=== PATIENT | female | born 1940 ===

== ENCOUNTER 2021-07-08 18:15 | Inpatient (IN) | payer MEDICARE, MEDICAID ==
[~2021-07-08] VITALS: Ht 170.2 cm; Wt 82.3 kg
[2021-07-08 20:00] VITALS: BP 147/89; PULSE 73; TEMP 97.9
[2021-07-08] MEDS ORDERED: ASPIRIN 32325 MG/TAB PO (20:05)
[2021-07-08] MEDS ORDERED: VENTOLIN0.09 MG IH (20:07)
[2021-07-08] MEDS ORDERED: COMPLETE MULTI1 TAB PO (20:09)
[2021-07-08] MEDS ORDERED: OMEGA-31 SGL PO (20:09)
[2021-07-08] MEDS ORDERED: VITAMIN C500 MG PO (20:10)
--- NOTE | 2021-07-08 23:25 | NUR ---
PT IS ALERT AND ORIENTATED, PLEASANT. PT STATES SHE DID NOT SLEEP WELL AT OTHER HOSPITAL AND WANTED TO GET SOME SLEEP. ASSESSMENT COMPLETED. CALL LIGHT IN PLACE, THIS RN EDUCATED PT ABOUT WHAT TO EXPECT IN THE NEXT FEW DAYS. PT VERBALIZED UNDERSTANDING. THIS RN GAVE UPDATE TO GRANDDAUGHTER AND SON. SON, ANNE, STATES HE HAS POA, , AND HAD MULTIPLE QUESTIONS ABOUT TREATMENT AND HER DIAGNOSIS. NO OTHER NEEDS AT THIS TIME.
[2021-07-09 00:40] VITALS: BP 146/67; PULSE 73; TEMP 97.7
[2021-07-09 04:41] VITALS: BP 143/55; PULSE 68; TEMP 97.6
[2021-07-09 04:43] LABS: ARTERIAL BLD GAS O2 SATURATION 93.1 % (92-100); ARTERIAL BLD GAS TCO2 CT 27.8; ARTERIAL BLOOD GAS BASE EXCESS 4.3 (-2-2); ARTERIAL BLOOD GAS HCO3 26.7 meq/L (22-26); ARTERIAL BLOOD GAS PCO2 33.2 mmHg (35-45); ARTERIAL BLOOD GAS PO2 61.8 mmHg (80-100); ARTERIAL BLOOD GAS pH 7.52 (7.35-7.45)
--- NOTE | 2021-07-09 06:25 | NUR ---
PT HAD AN UNEVENTFUL NIGHT. PT ON 10L HIGH FLOW. CALL LIGHT IN REACH, ALL NEEDS MET. PT SON, ANNE, STATES HE HAS POWER OF BUSINESS DEVELOPMENT ASSOCIATE -NOT VERIFIED WITH PATIENT OR PAPERWORK- CELL PHONE IS [phone]. PT SON WOULD LIKE ROUTINE UPDATES AND MAY HAVE FURTHER QUESTIONS. PT ALSO HAD QUESTIONS ABOUT MEDICATIONS.
[2021-07-09 08:05] LABS: BASO % 0.2 % (0.0-2.0); GRAN % 85.2 % (42.2-75.2); HEMATOCRIT 38.1 % (37.0-47.0); HEMOGLOBIN 12.8 g/dl (12.5-16.0); LYMPH # 0.9 K/mm3 (1.2-3.4); MEAN CELL VOLUME 89 fl (80.0-100.0); MEAN CORPUSCULAR HEMOGLOBIN 30 pg (27-31); MEAN CORPUSCULAR HGB CONC 34 g/dl (33.0-37.0); MEAN PLATELET VOLUME 10.7 fl (7.4-10.4); MONO # 0.6 K/mm3 (0.1-0.6); MONO % 5.4 % (1.7-9.3); PLATELET COUNT 282 K/mm3 (130-400); REDCELL DISTRIBUTION WIDTH-CV 13.4 % (11.5-14.5)
[2021-07-09 08:19] VITALS: BP 137/57; PULSE 65; TEMP 97.5
[2021-07-09 08:21] LABS: CALCIUM 8.1 mg/dL (8.4-10.2); CREATININE, serum 0.64 mg/dL (0.57-1.11); MAGNESIUM 2.3 mg/dL (1.6-2.6); POTASSIUM 3.5 mmol/L (3.5-4.5)
--- NOTE | 2021-07-09 08:30 | NUR ---
toan, pt son updated on pt's night. After this RT called notifying that pt now on airvo and that pt was hallucinating things on her ceiling . pt pleasant, aox4, sob at rest w/ airvo, medications given, anx infusing, educated on all meds given, assessment performed, pt denies bm "since before , i just haven't been eating anything since then". physician notified. pt has productive cough. pt utilizing bedside commode with assistance, pt seems unable to make a decision on code status, repeatedly states "i dont want the ventilator, ill just anyways" but then when asked if she would agree to be a do not intubate she states "well i just don't know ill probably anyways".
[2021-07-09 10:16] LABS: ALBUMIN 2.3 gm/dL (3.4-4.8); BILIRUBIN,DIRECT 0.3 mg/dL (0.0-0.5); BILIRUBIN,TOTAL 0.5 mg/dL (0.2-1.2); TOTAL PROTEIN 5.2 gm/dL (6.2-8.1)
[2021-07-09 10:18] LABS: C-REACTIVE PROTEIN 7.1 mg/dL (0.00-0.50)
--- NOTE | 2021-07-09 10:27 | NUR ---
attempted to call consult to ID, no answer at this time.
[2021-07-09 11:30] VITALS: BP 122/44; PULSE 66; TEMP 97.7
--- NOTE | 2021-07-09 11:42 | NUR ---
Supervisor Fruit Grading contacted patient by room phone as she is on isolation for COVID 19. Patient is currently on 40 liters of oxygen. Patient lives alone in [place] and advised that she goes to [facility] in [place] for primary care. Patient stated she was seeing Dr. Mercer who is no longer there, so she is not sure what physician she will be assigned to. Patient obtains medications from [facility] with no difficulties and uses a cane for ambulation. Patient uses no other DME and reports she is normally independent with ADLS. Patient states she printed out paperwork for DPOA-HC, however did not complete it. SW discussed completing DPOA-HC here and patient would like to do this. Patient states she understands this would give her children the ability to make medical decisions for her if she can't. Patient chose to designate her son, Miguel (ph#[phone]) and daughter, Alyse (ph#[phone]). Patient states she is hopeful that Miguel and Alyse will involve her two other children, Noah and Bud if decisions need to be made. Patient understands that she is designating Miguel and Alyse as the official descision makers. DAXA collaborated with nursing staff to obtain patient's signature as she is in isolation. DAXA and SOCRATES Tavarez provided witness signature and placed copy of form in patient's chart. DAXA contacted patient's son, Miguel who confirmed the above information. Miguel advised that he lives in [place] and his sister Alyse lives in [place]. Noah lives in [place] and Bud lives in [place]. Miguel advised patient is not and has a sister that he thinks lives in [place]. Miguel states he is not sure if patient will survive this illness and that it's in the Lord's hands at this point. Miguel advised he talked with patient on the phone and she didn't sound great. Discharge Plan: Patient currently on high flow oxygen, DAXA will continue to monitor for discharge needs.
[2021-07-09 16:59] VITALS: BP 121/45; BP 78/40; PULSE 75; TEMP 98.1
--- NOTE | 2021-07-09 17:48 | NUR ---
PT PLEASANT,AOX4,TALKATIVE, SOB AT REST, PT DENIES N/V/D, STABLE ON AIRVO
[2021-07-09 20:27] VITALS: BP 155/59; PULSE 86; TEMP 98.5
--- NOTE | 2021-07-09 23:07 | NUR ---
PT IS LAYING IN BED. ALERT. DENIES ALL PAIN. PT STATES SOME ANXIETY ABOUT PLAN OF CARE. PT STATES SHE WANTS HER LIVER TO BE HEALTHY AND NOT ABUSED, AND STATED SOME CONCERNS ABOUT INTUBATION. I ASKED PATIENT TO CLARIFY ABOUT IF SHE WANTED TO INTUBATED IF IT CAME TO THAT, SHE DID NOT ANSWER COMPLETELY, BUT SHE WANTED TO GET SOME SLEEP. PT EDUCATED ABOUT MEDICATIONS, PT VERBALIZED UNDERSTANDING. ALL NEEDS MET.
[2021-07-10 00:33] VITALS: BP 156/54; PULSE 72; TEMP 98.8
[2021-07-10 05:06] VITALS: BP 144/49; PULSE 67; TEMP 98.4
[2021-07-10 05:42] LABS: BASO % 0.1 % (0.0-2.0); GRAN # 8.3 K/mm3 (1.4-6.5); GRAN % 85.4 % (42.2-75.2); HEMATOCRIT 37.7 % (37.0-47.0); HEMOGLOBIN 12.6 g/dl (12.5-16.0); LYMPH # 0.7 K/mm3 (1.2-3.4); LYMPH % 6.8 % (20.0-51.0); MEAN CELL VOLUME 90 fl (80.0-100.0); MEAN CORPUSCULAR HEMOGLOBIN 30 pg (27-31); MEAN CORPUSCULAR HGB CONC 33 g/dl (33.0-37.0); MEAN PLATELET VOLUME 10.5 fl (7.4-10.4); MONO # 0.6 K/mm3 (0.1-0.6); MONO % 6.3 % (1.7-9.3); PLATELET COUNT 284 K/mm3 (130-400); RED BLOOD COUNT 4.18 M/mm3 (4.10-5.30); REDCELL DISTRIBUTION WIDTH-CV 13.4 % (11.5-14.5)
--- NOTE | 2021-07-10 05:44 | NUR ---
PT HAD AN UNEVENTFUL NIGHT, PT CURRENTLY ON 55L 61% ON AIRVO. PT SLEPT MOST OF NIGHT, PT DENIES PAIN, ALL NEEDS MET. CALL LIGHT IN REACH.
[2021-07-10 05:58] LABS: ALBUMIN 2.4 gm/dL (3.4-4.8); BILIRUBIN,TOTAL 0.4 mg/dL (0.2-1.2); C-REACTIVE PROTEIN 4.44 mg/dL (0.00-0.50); CALCIUM 8.3 mg/dL (8.4-10.2); CREATININE, serum 0.72 mg/dL (0.57-1.11); POTASSIUM 3.6 mmol/L (3.5-4.5); TOTAL PROTEIN 5.5 gm/dL (6.2-8.1)
[2021-07-10 07:02] LABS: PH 6 (5-8); SQUAMOUS EPITHELIAL 0-2 /hpf (0-10); URINE APPEARANCE Clear (CLEAR/HAZY); URINE BACTERIA None Seen /hpf (NONE SEEN); URINE BILIRUBIN Negative (NEGATIVE); URINE BLOOD Negative (NEGATIVE); URINE COLOR Yellow (YELLOW); URINE GLUCOSE 3+ (NEGATIVE); URINE KETONE Negative (NEGATIVE); URINE LEUKOCYTE ESTERASE Negative (NEGATIVE); URINE NITRATE Negative (NEGATIVE); URINE PROTEIN(semi-quant) Negative (NEGATIVE); URINE RBC 0-2 /hpf (0-2); URINE UROBILINOGEN Negative (NEGATIVE)
[2021-07-10 07:35] LABS: COLLECTION METHOD CLEAN CATCH
[2021-07-10 08:49] VITALS: BP 155/73; PULSE 73; TEMP 97.5
--- NOTE | 2021-07-10 09:04 | NUR ---
PT PLEASANT, AOX4, VERY TALKATIVE, ON AIRVO 55L, BREAKFAST BROUGHT IN TO PT, PT REPORTS HAVING TROUBLE SWALLOWING BREAD, PT APPEARS SOB AT REST, ASSESSMENT PERFORMED, MEDICATIONS GIVEN, VITALS REVIEWED, NO OTHER NEEDS
[2021-07-10 11:41] VITALS: BP 154/56; PULSE 65
[2021-07-10 17:00] VITALS: BP 149/65; PULSE 69; TEMP 98.5
--- NOTE | 2021-07-10 17:14 | NUR ---
PT EARLIER HAD C/O HEADACHE, TYLENOL GIVEN NOW PT DENIES PAIN, AOX4, PLEASANT, UNEVENTFUL SHIFT, VITALS STABLE, LITTLE APPETITE, NO OTHER NEEDS
[2021-07-10 20:52] VITALS: BP 156/63; PULSE 80; TEMP 97.6
--- NOTE | 2021-07-10 23:42 | NUR ---
Patient assessed around 2044. Alert and oriented x 4, and able to make needs known. Denies having pain and discomfort. PICC to RUE. Peripheral INT to left forearm. On Airvo 60L 80%. Does complain of shortness of breath, mainly after exertion. Used bedside commode to help decrease exertion. LS CTA in upper lobes, diminished in lower. Given PRN Melatonin for insomnia as requested. Voices no further questions, needs, or concerns at this time. In bed with call light radha woodruff.
[2021-07-11 00:46] VITALS: BP 150/55; PULSE 65; TEMP 97.7
[2021-07-11 04:49] VITALS: BP 131/85; PULSE 68; TEMP 97.7
--- NOTE | 2021-07-11 05:26 | NUR ---
Continues on Airvo at 60L 80%. Voices no questions, needs, or concerns at this time. In bed with call light within reach.
[2021-07-11 06:45] LABS: HEMATOCRIT 41.5 % (37.0-47.0); HEMOGLOBIN 13.9 g/dl (12.5-16.0); MEAN CELL VOLUME 89 fl (80.0-100.0); MEAN CORPUSCULAR HEMOGLOBIN 30 pg (27-31); MEAN CORPUSCULAR HGB CONC 34 g/dl (33.0-37.0); MEAN PLATELET VOLUME 10.8 fl (7.4-10.4); PLATELET COUNT 348 K/mm3 (130-400); RED BLOOD COUNT 4.64 M/mm3 (4.10-5.30); REDCELL DISTRIBUTION WIDTH-CV 13.2 % (11.5-14.5)
[2021-07-11 07:15] LABS: C-REACTIVE PROTEIN 3.82 mg/dL (0.00-0.50); CALCIUM 8.6 mg/dL (8.4-10.2); CREATININE, serum 0.67 mg/dL (0.57-1.11); POTASSIUM 3.6 mmol/L (3.5-4.5)
[2021-07-11 08:25] LABS: BAND 7 % (0-10); LYMPHOCYTE 5 % (20.0-51.0); METAMYELOCYTE 1 % (0-0); NEUTROPHILS 83 % (42.0-75.2)
[2021-07-11 08:26] LABS: PLATELET ESTIMATE NORMAL (NORMAL)
[2021-07-11 08:37] VITALS: BP 133/68; PULSE 70; TEMP 97.6
--- NOTE | 2021-07-11 08:50 | NUR ---
PT PLEASANT, AOX4, TALKATIVE, DENIES PAIN, ASSESSMENT PERFORMED, VITALS TAKEN AND REVIEWED, MEDICATIONS GIVEN, NO OTHER NEEDS, PT ATE 100% BREAKFAST
[2021-07-11 12:08] VITALS: BP 144/76; PULSE 72; TEMP 98.6
--- NOTE | 2021-07-11 12:25 | NUR ---
CALLED NÉSTOR BAKER FOR MEDICATION FOR CONSTIPATION
--- NOTE | 2021-07-11 13:27 | NUR ---
The patient's oxygen needs increased to 60 liters on airvo. The patient's RN notified DAXA that the patient's daughter, Alyse, had some questions for DAXA. DAXA contacted Alyse. Alyse inquired about the DPOA-HC. DAXA informed Alyse how the patient completed a DPOA-HC on Wednesday and designated her and her brother, Miguel. DAXA also reviewed discharge options of [facility] or rehab, if they are needed. Alyse verbalized understanding. Alyse is hopeful the patient can go home upon discharge. She had no other questions for SW at this time. SW to continue to follow.
[2021-07-11 16:25] VITALS: BP 155/74; PULSE 69; TEMP 98
--- NOTE | 2021-07-11 18:24 | NUR ---
PT PLEASANT, AOX4, INSULIN GIVEN WITH DINNER, AIRVO ON, UNEVENTFUL SHIFT OVERALL
[2021-07-11 20:45] VITALS: BP 125/89; PULSE 73; TEMP 98
--- NOTE | 2021-07-11 23:21 | NUR ---
Patient assessed around 2039. Alert and oriented x 4, and able to make needs known. Denies pain and discomfort. Given PRN Melatonin to help with sleep as requested. Patient has been ambulating to bathroom tonight, reports decreased dyspnea with exertion today compared to yesterday. Continues on Airvo at 60L 75%. Voices no further questions, needs, or concerns at this time. In bed with call light within reach.
[2021-07-12 00:39] VITALS: BP 133/48; PULSE 68; TEMP 98.5
--- NOTE | 2021-07-12 04:35 | NUR ---
Continues on Airvo at 60L 90%. Voices no questions, needs, or concerns at this time. In bed with call light within reach.
[2021-07-12 05:13] VITALS: BP 128/87; PULSE 69; TEMP 98.4
[2021-07-12 05:50] LABS: HEMATOCRIT 37.4 % (37.0-47.0); MEAN CELL VOLUME 88 fl (80.0-100.0); MEAN CORPUSCULAR HEMOGLOBIN 31 pg (27-31); MEAN CORPUSCULAR HGB CONC 35 g/dl (33.0-37.0); MEAN PLATELET VOLUME 10.4 fl (7.4-10.4); PLATELET COUNT 285 K/mm3 (130-400); RED BLOOD COUNT 4.26 M/mm3 (4.10-5.30); REDCELL DISTRIBUTION WIDTH-CV 13.1 % (11.5-14.5)
[2021-07-12 06:08] LABS: C-REACTIVE PROTEIN 5.74 mg/dL (0.00-0.50); CALCIUM 8.4 mg/dL (8.4-10.2); CREATININE, serum 0.6 mg/dL (0.57-1.11); POTASSIUM 3.6 mmol/L (3.5-4.5)
[2021-07-12 06:44] LABS: BAND 8 % (0-10); EOSINOPHIL 2 % (0-4); LYMPHOCYTE 10 % (20.0-51.0); METAMYELOCYTE 2 % (0-0); NEUTROPHILS 73 % (42.0-75.2)
[2021-07-12 06:45] LABS: ANISOCYTOSIS 2+
[2021-07-12 08:46] VITALS: BP 129/65; PULSE 70; TEMP 97.9
[2021-07-12 12:21] VITALS: BP 143/52; PULSE 71; TEMP 98.3
[2021-07-12 16:59] VITALS: BP 134/51; PULSE 67; TEMP 98.3
[2021-07-12 20:53] VITALS: BP 104/69; PULSE 69; TEMP 98.2
--- NOTE | 2021-07-12 23:28 | NUR ---
Patient had been on Airvo at 60L 90%. RT changed over to Bipap at HS. Given PRN Melatonin for insomnia as requested. Voices no furhter questions, needs, or concerns at this time. In bed with call light within reach.
[2021-07-13 01:17] VITALS: BP 137/62; PULSE 57; TEMP 97.4
[2021-07-13 04:37] VITALS: BP 141/61; PULSE 57; TEMP 97.5
--- NOTE | 2021-07-13 06:05 | NUR ---
Patient became anxious with BIPAP during the night. Called SAMUEL Hutton, and received one time order for Ativan. Patient reports medication helped a lot with her anxiety and being able to rest and tolerate BIPAP. Has voiced no further questions, needs, or concerns. In bed with call light within reach.
[2021-07-13 08:08] LABS: HEMATOCRIT 38.5 % (37.0-47.0); HEMOGLOBIN 12.9 g/dl (12.5-16.0); MEAN CELL VOLUME 90 fl (80.0-100.0); MEAN CORPUSCULAR HEMOGLOBIN 30 pg (27-31); MEAN CORPUSCULAR HGB CONC 34 g/dl (33.0-37.0); MEAN PLATELET VOLUME 10.8 fl (7.4-10.4); PLATELET COUNT 297 K/mm3 (130-400); REDCELL DISTRIBUTION WIDTH-CV 13.2 % (11.5-14.5)
[2021-07-13 08:35] LABS: CALCIUM 8.6 mg/dL (8.4-10.2); CREATININE, serum 0.59 mg/dL (0.57-1.11)
[2021-07-13 08:54] VITALS: BP 132/62; PULSE 71; TEMP 97.7
--- NOTE | 2021-07-13 10:12 | NUR ---
Patient very tearful this morning, crying over the blankets we have as "they are the ones that [employer] [employer] babies are wrapped in before the ". Patient ambulated to the bathroom and did well. All morning medications administered.
[2021-07-13 11:32] LABS: LYMPHOCYTE 4 % (20.0-51.0); NEUTROPHILS 94 % (42.0-75.2)
[2021-07-13 11:33] LABS: PLATELET ESTIMATE NORMAL (NORMAL)
[2021-07-13 11:43] VITALS: BP 103/61; PULSE 74; TEMP 98.1
[2021-07-13 16:06] VITALS: BP 131/56; PULSE 70; TEMP 98
--- NOTE | 2021-07-13 18:05 | NUR ---
Patient has been resting all day, and continues to be tearful. Stating she is "going to be here for a year". Reassurance provided.
[2021-07-13 19:27] VITALS: BP 120/54; PULSE 74
[2021-07-14 00:20] VITALS: BP 136/53; PULSE 65; TEMP 97.5
--- NOTE | 2021-07-14 03:17 | NUR ---
ASSESSMENT COMPLETE FOR THIS SHIFT. PT SITTING ON THE SIDE OF THE BED. SOON I WALKED IN PT SAID, "HERE, MY BRA IS DIRTY, PUT IT AWAY...AND GO GET ME A NEW GOWN, THIS ONES DIRTY!" AFTER PUTTING THE PT'S BRA AWAY, GETTING HER A NEW HOSPITAL GOWN AND ASSISTING HER TO THE RESTROOM AND BACK TO BED, PT STATED SHE WAS MISSING HER K-STATE SHIRT AND HER HOUSE SHOES FROM HER MOVE OUT OF RM308 TO [place]302. I COULD NOT FIND ANY OF HER ITEMS IN [place]308. WILL PASS IT ON TO DAYSHIFT, TO SEE IF HOUSEKEEPING FOUND ANYTHING IN RM308 DURING CLEANING. PT DENIED PAIN, PALPITATIONS, SOB OR DIZZINESS. AFTER GIVING PT HER REQUESTED MELATONIN TO HELP HER SLEEP, PT STATED SHE HAD NO OTHER NEEDS AT THIS TIME. CALL LIGHT WITHIN REACH.
[2021-07-14 03:48] VITALS: BP 141/67; PULSE 63; TEMP 98
[2021-07-14 08:28] VITALS: BP 139/69; PULSE 72; TEMP 97.6
--- NOTE | 2021-07-14 09:07 | NUR ---
All morning medications administered as ordered. Patient assisted to the bathroom by this RN, using a walker. Gait is steady. Patient's voice is very monotoned and she asked, "Do I sound depressed? I've never had depression before. What are they going to do to fix this?" This RN gave the patient ideas to help boost her mood, and is keeping the curtains open to allow sunlight.
--- NOTE | 2021-07-14 10:33 | NUR ---
The hospitalist notified DAXA that he would like a referral to [facility] for the patient. DAXA contacted and faxed a referral to Alcides at [facility]. Awaiting screen.
[2021-07-14 12:19] VITALS: BP 136/47; PULSE 80; TEMP 98
--- NOTE | 2021-07-14 14:45 | NUR ---
Alcides, at [facility], reports that the patient has [employer] and they deny everything. He reports that the patient's oxygen needs are not where he can make a case for insurance yet, where they would consider it. Alcides plans to follow the patient.
[2021-07-14 15:50] VITALS: BP 120/56; PULSE 74; TEMP 97.4
[2021-07-14 19:58] VITALS: BP 121/55; PULSE 76; TEMP 97.9
[2021-07-15] VITALS (7 sets, daily range): BP systolic 103–140; BP diastolic 49–67; PULSE 60–79; TEMP 97.4–98.2
--- NOTE | 2021-07-15 08:13 | NUR ---
ASSESSMENT COMPLETE FOR THIS SHIFT. PT COOPERATIVE WITH CARES. PT RESTING IN BED, RUBBING HER PRAY BLANKET(JUST A HOSPITAL BLANKET). PT VERY TALKATIVE. PT DENIES PAIN, PALPITATIONS, SOB OR DIZZINESS TONIGHT. PT WAS WILLING TO TRY THE BIPAP TONIGHT, WITH THE HELP OF SOME ATIVAN. PT DID WELL WITH THE BIPAP TONIGHT. PT STATES SHE HAS NO OTHER NEEDS AT THIS TIME. CALL LIGHT WITHIN REACH.
--- NOTE | 2021-07-15 10:00 | NUR ---
Assumed pt. All lines,tubes, GTTs , AIRVO,BIPAP, checked and verified. PT is alert but depressed. PT currently wearing the BIPAP. BIPAP removed and AIRVO applied. PT states that she worries about her dog and that she will lose her apartment. PT was reassured and positive feedback given. PT ambulated with assistance of a walker to the bathroom. PTs sats fell into the low 80s during ambulation to the bathroom but did not appear as though she was having diffuclty breathing and did not state she felt she was having problems. Will continue to monitor PT oxygen demand and mental health state.
--- NOTE | 2021-07-15 14:56 | NUR ---
DAXA contacted the patient's daughter, Alyse, to update on the clinical team's recommendation for [facility] and of the barriers with the patient's insurance. Alyse verbalized understanding and is in agreement to the plan. Alyse is hopeful for a call from the RN with an update. DAXA notified the patient's RN. DAXA faxed updates to Alcides at [facility].
--- NOTE | 2021-07-15 16:45 | NUR ---
PT BLOOD SUGAR HAS BEEN INCREASING THROUGHOUT THE DAY. BGL IS 387
--- NOTE | 2021-07-15 22:00 | NUR ---
Patient is resting in bed, alert and oriented x 4, VSS, denies pain, nausea or vimiting. SOB with exer. Airvo 60L 76%. Assisted to use the comode. Assessment completed, medications provided. No further needs at this time. Call light within reach.
--- NOTE | 2021-07-16 00:28 | NUR ---
Pt asked for anxiety and sleep medication. PRN provided.
[2021-07-16 00:35] VITALS: BP 137/56; PULSE 64; TEMP 98.6
[2021-07-16 04:48] VITALS: BP 136/69; PULSE 75; TEMP 98.5
--- NOTE | 2021-07-16 06:37 | NUR ---
Patient has been stable along the night. Continues with airvo at 60L and 73%. Shift report will be given to day RN.
[2021-07-16 08:00] VITALS: BP 126/50; PULSE 80; TEMP 97.7
[2021-07-16 08:18] LABS: HEMATOCRIT 40.8 % (37.0-47.0); HEMOGLOBIN 13.5 g/dl (12.5-16.0); MEAN CELL VOLUME 91 fl (80.0-100.0); MEAN CORPUSCULAR HEMOGLOBIN 30 pg (27-31); MEAN CORPUSCULAR HGB CONC 33 g/dl (33.0-37.0); MEAN PLATELET VOLUME 10.4 fl (7.4-10.4); PLATELET COUNT 282 K/mm3 (130-400); RED BLOOD COUNT 4.49 M/mm3 (4.10-5.30); REDCELL DISTRIBUTION WIDTH-CV 13.3 % (11.5-14.5)
[2021-07-16 08:34] LABS: C-REACTIVE PROTEIN 1.93 mg/dL (0.00-0.50); CALCIUM 8.5 mg/dL (8.4-10.2); CREATININE, serum 0.61 mg/dL (0.57-1.11); MAGNESIUM 2.3 mg/dL (1.6-2.6); POTASSIUM 4.3 mmol/L (3.5-4.5)
[2021-07-16 09:31] LABS: LYMPHOCYTE 9 % (20.0-51.0); NEUTROPHILS 79 % (42.0-75.2); PLATELET ESTIMATE NORMAL (NORMAL)
[2021-07-16 12:00] VITALS: BP 124/100; PULSE 77; TEMP 98.2
--- NOTE | 2021-07-16 13:58 | NUR ---
DAXA faxed updates to Alcides at [facility].
--- NOTE | 2021-07-16 14:29 | NUR ---
Alcides, at [facility], reports that for a good chance for the patient's insurance, Malika hubbard, he recommends waiting until the patient is down to 45 liters with FiO2 at 60%.
[2021-07-16 16:00] VITALS: BP 127/59; PULSE 62; TEMP 97.7
[2021-07-16 21:24] VITALS: BP 112/60; PULSE 67; TEMP 97.7
--- NOTE | 2021-07-16 21:30 | NUR ---
Patient is resting in bed, alert and oriented x 4, weraing the AIRVO at 50L and 60%. Pt asked for anxiety and sleep medications. PRN provided. Assessment completed, no other needs at this time. Call light within reach.
[2021-07-17 01:14] VITALS: BP 121/63; PULSE 54; TEMP 98
[2021-07-17 04:19] VITALS: BP 129/89; PULSE 60; TEMP 97.9
--- NOTE | 2021-07-17 06:08 | NUR ---
Patient has had a calm night, right now with airvo at 50L 67%FiO2. She states she has anxiety but able to tolerate with the ativan. All needs met. Report will be given to day RN.
[2021-07-17 07:59] VITALS: BP 123/55; PULSE 63; TEMP 97.8
--- NOTE | 2021-07-17 10:08 | NUR ---
PT RESTING IN BED. MORNING MEDICATIONS GIVEN. SHIFT ASSESSMENT COMPLETED. CURRENTLY ON AIRVO 50L/70%, TOLERATING WELL. PICC LINE FLUSHES BUT HAS NO BLOOD RETURN, CATH FLOW ORDERED. PT DENIES ANY PAIN OR NEEDS. WILL CONTINUE TO MONITOR.
[2021-07-17 11:50] VITALS: BP 113/45; PULSE 72; TEMP 97.8
--- NOTE | 2021-07-17 13:16 | NUR ---
PICC LINE FLSUHES AND HAD BLOOD RETURN FOLLOWING USE OF CATH FLOW.
[2021-07-17 16:43] VITALS: BP 120/60; PULSE 62; TEMP 98.1
[2021-07-17 20:12] VITALS: BP 139/70; PULSE 76; TEMP 97.9
[2021-07-18] VITALS (7 sets, daily range): BP systolic 113–130; BP diastolic 58–85; PULSE 57–73; TEMP 97.5–98
--- NOTE | 2021-07-18 02:04 | NUR ---
ASSESSMENT COMPLETE FOR THIS SHIFT. PT RESTING IN BED, IN THE DARK. PT COMPLAINED OF ANXIETY AND DIFFICULTY GETTING TO SLEEP. PT GIVEN ATIVAN AND MELATONIN TO HELP. PT DENIES PAIN, PALPITATIONS, SOB OR DIZZINESS. PT WOKE UP LATER THIS SHIFT DUE TO BIPAP MACHINE ALARM. BIPAP OUT OF WATER. RT CALLED. PT UNABLE TO GET BACK TO SLEEP. PT HAS TO WAIT UNTIL 0345HRS FOR MORE ATIVAN. PT STATED SHE UNDERSTOOD. PT GIVEN SOME IDEAS TO HELP HER GET BACK TO SLEEP. PT STATES SHE HAS NO OTHER NEEDS AT THIS TIME. CALL LIGHT WITHIN REACH.
[2021-07-18 07:28] LABS: HEMATOCRIT 42.9 % (37.0-47.0); HEMOGLOBIN 14.6 g/dl (12.5-16.0); MEAN CELL VOLUME 89 fl (80.0-100.0); MEAN CORPUSCULAR HEMOGLOBIN 30 pg (27-31); MEAN CORPUSCULAR HGB CONC 34 g/dl (33.0-37.0); MEAN PLATELET VOLUME 10.6 fl (7.4-10.4); PLATELET COUNT 318 K/mm3 (130-400); RED BLOOD COUNT 4.81 M/mm3 (4.10-5.30); REDCELL DISTRIBUTION WIDTH-CV 13.5 % (11.5-14.5)
[2021-07-18 07:44] LABS: CALCIUM 8.7 mg/dL (8.4-10.2); CREATININE, serum 0.68 mg/dL (0.57-1.11); POTASSIUM 4.5 mmol/L (3.5-4.5)
[2021-07-18 08:18] LABS: EOSINOPHIL 1 % (0-4); LYMPHOCYTE 15 % (20.0-51.0); NEUTROPHILS 76 % (42.0-75.2); PLATELET ESTIMATE NORMAL (NORMAL)
--- NOTE | 2021-07-18 09:27 | NUR ---
The patient's oxygen needs have decreased. DAXA notified and faxed updates to Alcides at [facility] [place].
--- NOTE | 2021-07-18 09:43 | NUR ---
PT RESTING IN BED. MORNING MEDICATIONS GIVEN. SHIFT ASSESSMENT COMPLETED. PICC LINE FLUSHES AND HAS BLOOD RETURN. PT DENIES ANY PAIN. IS CURRENTLY ON AIRVO 40L/60%. WILL CONTINUE TO MONITOR.
--- NOTE | 2021-07-18 14:28 | NUR ---
Alcides, at [facility], reports that the has started auth on the patient. SW contacted and updated the patient's daughter, Alyse.
--- NOTE | 2021-07-19 02:17 | NUR ---
ASSESSMENT COMPLETE FOR THIS SHIFT. PT RESTING IN BED, WHEN I WALKED IN THE ROOM. PT HAD JUST GOTTEN UP FROM THE BEDSIDE COMMODE, WHERE SHE HAD A SMALL SOFT-FORMED BOWEL MOVEMENT. PT DENIED PAIN, PALPITATIONS, SOB OR DIZZINESS. PT CONTINUES TO BE VERY TALKATIVE. PT STATED SHE WAS READY TO "GET OUT OF THIS BED AND BACK HOME." I ENCOURAGED PT TO CONTINUE IMPROVING, LIKE SHE HAS AND SHE WOULD BE OUT OF HERE IN NO TIME. PT SAID SHE WOULD. PT STATED SHE HAD NO OTHER NEEDS AT THIE TIME. CALL LIGHT WITHIN REACH.
[2021-07-19 04:04] VITALS: BP 134/60; PULSE 60; TEMP 97.4
[2021-07-19 07:41] LABS: HEMATOCRIT 40.3 % (37.0-47.0); HEMOGLOBIN 13.6 g/dl (12.5-16.0); MEAN CELL VOLUME 90 fl (80.0-100.0); MEAN CORPUSCULAR HEMOGLOBIN 30 pg (27-31); MEAN CORPUSCULAR HGB CONC 34 g/dl (33.0-37.0); MEAN PLATELET VOLUME 10.8 fl (7.4-10.4); PLATELET COUNT 268 K/mm3 (130-400); RED BLOOD COUNT 4.49 M/mm3 (4.10-5.30); REDCELL DISTRIBUTION WIDTH-CV 13.5 % (11.5-14.5)
[2021-07-19 07:48] LABS: CALCIUM 8.4 mg/dL (8.4-10.2); CREATININE, serum 0.67 mg/dL (0.57-1.11); POTASSIUM 4.2 mmol/L (3.5-4.5)
[2021-07-19 08:07] VITALS: BP 121/66; PULSE 60; TEMP 97.7
--- NOTE | 2021-07-19 09:00 | NUR ---
PT ASSISTED TO BATHROOM, PT HAD LARGE SOFT FORMED BM, DENIES PAIN AND N/V/D. PT MEDICATIONS GIVEN, ASSESSMENT PERFORMED, BREAKFAST BROUGHT IN, NO OTHER NEEDS
[2021-07-19 09:55] LABS: EOSINOPHIL 1 % (0-4); LYMPHOCYTE 13 % (20.0-51.0)
[2021-07-19 09:56] LABS: NEUTROPHILS 74 % (42.0-75.2); PLATELET ESTIMATE NORMAL (NORMAL)
[2021-07-19 11:52] VITALS: BP 113/91; PULSE 76; TEMP 97.7
[2021-07-19 16:08] VITALS: BP 106/57; PULSE 69; TEMP 97.5
--- NOTE | 2021-07-19 18:02 | NUR ---
PT PLEASANT, AOX4, X2 LARGE BM DURING DAY SHIFT, INSULIN HELD AT DINNER TIME FOR 72 BS, MEDICATIONS GIVEN, NO OTHER NEEDS DURING SHIFT
[2021-07-19 20:19] VITALS: BP 129/52; PULSE 67; TEMP 97.6
[2021-07-19 23:40] VITALS: BP 122/20; PULSE 67; TEMP 98.3
--- NOTE | 2021-07-20 01:48 | NUR ---
ASSESSMENT COMPLETE FOR THIS SHIFT. PT IN BED LOOKING FRUSTRATED WHEN I WALKED IN. I ASKED PT WHAT WAS WRONG. PT STATED SHE WAS HAVING A HARD TIME DEACTIVATING HER JOSÉ MANUEL. I ENCOURAGED PT TO PUT IT AWAY AND TAKE A BREAK FROM IT, FOR A WHILE. PT AGREED. PT DENIED PAIN, PALPITATIONS, SOB, N,V,D OR DIZZINESS. PT CONTINUES TO BE VERY TALKATIVE, BUT HER CONVERSATIONS ARE MORE UP BEAT AND GRATEFUL TONIGHT, OPPOSED TO SAD AND DREARY. PT STATED SHE HAD NO OTHER NEEDS THIS TIME. CALL LIGHT WITHIN REACH.
[2021-07-20 03:45] VITALS: BP 103/44; PULSE 67; TEMP 98
[2021-07-20 06:21] LABS: HEMATOCRIT 41.2 % (37.0-47.0); HEMOGLOBIN 13.6 g/dl (12.5-16.0); MEAN CELL VOLUME 92 fl (80.0-100.0); MEAN CORPUSCULAR HEMOGLOBIN 30 pg (27-31); MEAN CORPUSCULAR HGB CONC 33 g/dl (33.0-37.0); MEAN PLATELET VOLUME 10.8 fl (7.4-10.4); PLATELET COUNT 229 K/mm3 (130-400); REDCELL DISTRIBUTION WIDTH-CV 13.7 % (11.5-14.5)
[2021-07-20 06:35] LABS: CALCIUM 8.5 mg/dL (8.4-10.2); CREATININE, serum 0.63 mg/dL (0.57-1.11)
[2021-07-20 07:48] LABS: BAND 1 % (0-10); EOSINOPHIL 1 % (0-4); METAMYELOCYTE 1 % (0-0)
[2021-07-20 07:49] LABS: LYMPHOCYTE 22 % (20.0-51.0); NEUTROPHILS 65 % (42.0-75.2); PLATELET ESTIMATE NORMAL (NORMAL)
--- NOTE | 2021-07-20 08:00 | NUR ---
PT PLEASANT, TALKATIVE, AOX4, ASSESSMENT PERFORMED, BREAKFAST DELIVERED, INSULIN GIVEN WITH OTHER MORNING MEDICATIONS, NO OTHER NEEDS
[2021-07-20 09:01] VITALS: BP 118/62; PULSE 64; TEMP 97.9
[2021-07-20 12:25] VITALS: BP 121/61; PULSE 66; TEMP 97.8
[2021-07-20 16:48] VITALS: BP 136/64; PULSE 73; TEMP 98.2
--- NOTE | 2021-07-20 18:39 | NUR ---
PT PLEASANT, DENIES PAIN, REPORTED LOW BS AT 1700, PT DRANK JUICE AND AOX4 REASSESSED 15MIN LATER AND SUGAR INC TO NORMAL LEVEL, INSULIN HELD AT DINNER, DINNER BROUGHT IN TO PT, NO OTHER NEEDS
[2021-07-20 20:00] VITALS: BP 136/63; PULSE 69; TEMP 97.7
[2021-07-20 23:14] VITALS: BP 110/55; PULSE 64; TEMP 98
[2021-07-21 03:15] VITALS: BP 131/61; PULSE 64; TEMP 97.5
--- NOTE | 2021-07-21 06:24 | NUR ---
ASSESSMENT COMPLETE FOR THIS SHIFT. PT RESTING IN BED WITH ALL THE LIGHTS OFF WHEN I WALKED IN. PT DENIES PAIN, PALPITATIONS, SOB, N,V,D OR DIZZINESS. OTHER THEN HER USUAL TALKATIVENESS, NOTHING NOTABLE TO REPORT THIS SHIFT. PT STATES SHE HAS NO OTHER NEEDS AT THIS TIME. CALL LIGHT WITHIN REACH.
[2021-07-21 07:28] LABS: CALCIUM 8.2 mg/dL (8.4-10.2); CREATININE, serum 0.68 mg/dL (0.57-1.11)
[2021-07-21 07:53] LABS: HEMATOCRIT 38.7 % (37.0-47.0); HEMOGLOBIN 12.7 g/dl (12.5-16.0); MEAN CELL VOLUME 92 fl (80.0-100.0); MEAN CORPUSCULAR HEMOGLOBIN 30 pg (27-31); MEAN CORPUSCULAR HGB CONC 33 g/dl (33.0-37.0); MEAN PLATELET VOLUME 10.9 fl (7.4-10.4); PLATELET COUNT 213 K/mm3 (130-400); RED BLOOD COUNT 4.19 M/mm3 (4.10-5.30); REDCELL DISTRIBUTION WIDTH-CV 13.9 % (11.5-14.5)
[2021-07-21 08:00] VITALS: BP 149/74; PULSE 65; TEMP 97.6
--- NOTE | 2021-07-21 08:00 | NUR ---
Patient sitting up in bed, A&Ox4. VSS 11L HF NC, no reported SOB. Patient states that she likes the longer tubing. Denies pain and discomfort. Droplet/contact precautions in place. Patient independent with BSC and calls for assistance to use the bathroom. No further needs expressed. Call light within reach
[2021-07-21 08:14] LABS: BAND 6 % (0-10); EOSINOPHIL 3 % (0-4); LYMPHOCYTE 16 % (20.0-51.0); METAMYELOCYTE 1 % (0-0); NEUTROPHILS 68 % (42.0-75.2); PLATELET ESTIMATE NORMAL (NORMAL)
--- NOTE | 2021-07-21 10:09 | NUR ---
Per Alcides at [facility], patient's insurance company denied her for LTAC. Peer to peer needed before noon for a re-eval with Dr. Lincoln at [phone]. Denial reason given was that the patient can go to a lower level of care on a high flow oxygen. Spoke with hospitalist on the case today and states that the patient's oxygen demand has gone down to 10L and feels as if [facility] is no longer needed. Patient may need to go to SNF post discharge instead once down to 5L or below due to risk factors including her age, oxygen needs, living alone [place] Message left with Alcides on the above information and that the patient will no longer need [facility].
[2021-07-21 11:26] VITALS: BP 147/61; PULSE 76; TEMP 97.5
--- NOTE | 2021-07-21 15:57 | NUR ---
SNF referrals sent to [facility], [facility], [facility], and [facility].
--- NOTE | 2021-07-21 16:10 | NUR ---
GLADIS Causey at [facility] states that they will not be able to accept this patient if we are looking for a discharge this week.
[2021-07-21 16:30] VITALS: BP 139/68; PULSE 73; TEMP 97.7
--- NOTE | 2021-07-21 18:05 | NUR ---
Patient had an uneventful day, independent in the room. A&Ox4. VSS 5L HF and no reported SOB. IV CDI. Denies pain and discomfort. No further needs expressed. Call light within reach
[2021-07-21 19:33] VITALS: BP 124/62; PULSE 74; TEMP 97.6
--- NOTE | 2021-07-21 23:30 | NUR ---
ASSESSMENT COMPLETE FOR THE SHIFT. PT SITTING ON THE SIDE OF THE BED IN THE DARK WHEN I WALKED IN FOR ASSESSMENT. PT STATES SHE HATES HER INSURANCE, IT'S BAD, IT DOESN'T PAY FOR MUCH, BECAUSE IT BIDENCARE. PT STATES HER DAUGHTER IS TRYING TO WORK WITH HER INSURANCE COMPANY TO GET HER INTO A REHAB, IN OR CLOSE TO [place], SO THAT HER FAMILY CAN COME VISIT HER. PT DENIES PAIN, PALPITATIONS, N,V,D, SOB OR DIZZINESS. PT STATES SHE HAS NO OTHER NEEDS AT THIS TIME. CALL LIGHT WITHIN REACH.
[2021-07-21 23:31] VITALS: BP 94/55; PULSE 73; TEMP 97.3
[2021-07-22] VITALS (7 sets, daily range): BP systolic 115–157; BP diastolic 56–75; PULSE 67–86; TEMP 97.8–100
[2021-07-22 06:23] LABS: HEMOGLOBIN 12.4 g/dl (12.5-16.0); MEAN CELL VOLUME 91 fl (80.0-100.0); MEAN CORPUSCULAR HEMOGLOBIN 31 pg (27-31); MEAN CORPUSCULAR HGB CONC 34 g/dl (33.0-37.0); MEAN PLATELET VOLUME 10.8 fl (7.4-10.4); PLATELET COUNT 206 K/mm3 (130-400); RED BLOOD COUNT 4.04 M/mm3 (4.10-5.30); REDCELL DISTRIBUTION WIDTH-CV 13.9 % (11.5-14.5)
[2021-07-22 06:35] LABS: CALCIUM 8.1 mg/dL (8.4-10.2); CREATININE, serum 0.64 mg/dL (0.57-1.11); POTASSIUM 3.8 mmol/L (3.5-4.5)
[2021-07-22 06:39] LABS: HEMATOCRIT 36.8 % (37.0-47.0)
[2021-07-22 07:39] LABS: BAND 6 % (0-10); EOSINOPHIL 1 % (0-4); LYMPHOCYTE 17 % (20.0-51.0); NEUTROPHILS 65 % (42.0-75.2); PLATELET ESTIMATE NORMAL (NORMAL)
--- NOTE | 2021-07-22 10:12 | NUR ---
Patient laying in bed upon entering the room. Blinds opened to provide sunlight. Patient is very pleasant this morning and appears to be in a good mood; Hopeful about getting into a rehab facility in [place]. This RN informed her that SW would get everything taken care of and notify her as soon as they had any information. Patient using BSC independently. Call light is w/in reach, patient encouraged to call if any needs arise.
--- NOTE | 2021-07-22 16:02 | NUR ---
Patient no longer in isolation per ID nurse, Sophie. Patient moved from room 302 to 316. Patient became very emotional with this change and began crying, is excited to see her family.
--- NOTE | 2021-07-22 16:26 | NUR ---
DAXA contacted Sophie, occupational therapy professor, to inquire when the patient can come out of isolation. Sophie reports that the patient is able to come out of isolation now. SW updated the patient's RN. Bel, at [facility], asked that SW resend the referral. Choco, at [facility], reports that they are still reviewing the referral. Tammi, at [facility], requested updates. The progress notes from today have not been completed yet. DAXA contacted the patient's daughter, Alyse, and updated her on discharge plan and the referrals. Alyse is in agreement to the plan. Alyse plans to come up and visit the patient tomorrow.
--- NOTE | 2021-07-22 17:08 | NUR ---
Patient sitting up in bed eating dinner, doing well in new room. Call light is w/in reach.
--- NOTE | 2021-07-22 21:00 | NUR ---
Initial shift assessment done- on 5L/high flow, sats 94%, denies pain/SOB.
[2021-07-23 04:14] VITALS: BP 158/75; PULSE 77; TEMP 97.9
--- NOTE | 2021-07-23 05:46 | NUR ---
Quiet night- VSS, no requests.
[2021-07-23 08:20] VITALS: BP 132/51; PULSE 73; TEMP 98.6
[2021-07-23 09:02] LABS: HEMATOCRIT 38.7 % (37.0-47.0); HEMOGLOBIN 12.9 g/dl (12.5-16.0); MEAN CELL VOLUME 91 fl (80.0-100.0); MEAN CORPUSCULAR HEMOGLOBIN 30 pg (27-31); MEAN CORPUSCULAR HGB CONC 33 g/dl (33.0-37.0); MEAN PLATELET VOLUME 11.1 fl (7.4-10.4); PLATELET COUNT 204 K/mm3 (130-400); RED BLOOD COUNT 4.24 M/mm3 (4.10-5.30)
[2021-07-23 09:13] LABS: CALCIUM 8.5 mg/dL (8.4-10.2); CREATININE, serum 0.7 mg/dL (0.57-1.11)
--- NOTE | 2021-07-23 09:27 | NUR ---
The clinical team is ready to discharge the patient. DAXA notified ML, AV[facility], and Danny and faxed the updates. Awaiting screens and insurance auth.
[2021-07-23 09:52] LABS: BAND 6 % (0-10); EOSINOPHIL 1 % (0-4); LYMPHOCYTE 11 % (20.0-51.0); METAMYELOCYTE 2 % (0-0); NEUTROPHILS 65 % (42.0-75.2); PLATELET ESTIMATE NORMAL (NORMAL)
[2021-07-23 11:42] VITALS: BP 124/96; PULSE 67; TEMP 99.1
--- NOTE | 2021-07-23 13:27 | NUR ---
Choco, at [facility], reports that they are still waiting to hear from insurance on auth. Tammi, at [facility], reports that they will be getting in contact with insurance today for auth and to see if they can expedite it.
--- NOTE | 2021-07-23 15:33 | NUR ---
Choco, at [facility], reports that insurance has two requests for auth and they will not approve one, until they know preference. DAXA met with the patient and her daughter, Alyse, to update on [facility] and [facility]'s acceptance and to inquire preference. Alyse reports that she has already been in contact with [facility] and she would prefer to pursue with them. The patient is supportive of this decision. DAXA notified Choco at [facility]. Choco reports that he has notified insurance and received the auth number. He reports that he can accept the patient tomorrow. DAXA updated the SAMUEL and Tammi at [facility]. *Discharge plan: [facility] *
[2021-07-23 16:15] VITALS: BP 138/68; PULSE 80; TEMP 98.4
--- NOTE | 2021-07-23 18:32 | NUR ---
Patient has done well today. Transferred to room 349, report given to Samantha Shaw RN.
[2021-07-23 19:24] VITALS: BP 138/65; PULSE 79; TEMP 98.3
[2021-07-23 23:20] VITALS: BP 138/74; PULSE 69; TEMP 97.4
[2021-07-24 03:50] VITALS: BP 119/61; PULSE 64; TEMP 98
[2021-07-24 07:00] LABS: HEMATOCRIT 38.4 % (37.0-47.0); HEMOGLOBIN 12.7 g/dl (12.5-16.0); MEAN CELL VOLUME 92 fl (80.0-100.0); MEAN CORPUSCULAR HEMOGLOBIN 31 pg (27-31); MEAN CORPUSCULAR HGB CONC 33 g/dl (33.0-37.0); MEAN PLATELET VOLUME 11.1 fl (7.4-10.4); PLATELET COUNT 199 K/mm3 (130-400); RED BLOOD COUNT 4.16 M/mm3 (4.10-5.30); REDCELL DISTRIBUTION WIDTH-CV 14.2 % (11.5-14.5)
--- NOTE | 2021-07-24 07:16 | NUR ---
Pt resting with eyes closed during shift report. She did wake while in the room. Pt had no complaints, assisted with ordering her breakfast
[2021-07-24 07:19] LABS: ALBUMIN 2.5 gm/dL (3.4-4.8); CALCIUM 8.6 mg/dL (8.4-10.2); CREATININE, serum 0.64 mg/dL (0.57-1.11); MAGNESIUM 2.2 mg/dL (1.6-2.6); PHOSPHOROUS 3.6 mg/dL (2.3-4.7)
--- NOTE | 2021-07-24 07:42 | NUR ---
ASSESSMENT COMPLETE FOR THIS SHIFT. PT RESTING IN BED. PT DENIES PAIN, PALPITATIONS, SOB, N,V,D OR DIZZINESS. PT EXPRESSED LOOKING FORWARD TO GOING TO HALF-WAY, AND THEN HOME. PT HAD AN OTHERWISE UNEVENTFUL NIGHT. PT STATES SHE HAS NO OTHER NEEDS AT THIS TIME. CALL LIGHT WITHIN REACH.
[2021-07-24 08:05] VITALS: BP 147/78; PULSE 78; TEMP 97.5
[2021-07-24 08:06] LABS: EOSINOPHIL 1 % (0-4); LYMPHOCYTE 21 % (20.0-51.0); NEUTROPHILS 69 % (42.0-75.2)
[2021-07-24 08:07] LABS: PLATELET ESTIMATE NORMAL (NORMAL)
[2021-07-24] MEDS ORDERED: OMEGA-31 SGL PO (09:00)
[2021-07-24] MEDS ORDERED: VENTOLIN0.09 MG IH (09:00)
[2021-07-24] MEDS ORDERED: MELATIN 3 MG-11 TAB PO (09:01)
[2021-07-24] MEDS ORDERED: VITAMIN C500 MG PO (09:01)
[2021-07-24] MEDS ORDERED: MIRALAX PA17 GM/Dose PO (09:01)
[2021-07-24] MEDS ORDERED: COMPLETE MULTI1 TAB PO (09:01)
[2021-07-24] MEDS ORDERED: NOVOLOG 100U100 U/M1 SQ (09:11)
--- NOTE | 2021-07-24 10:00 | NUR ---
Pt doing well today, no pain complaints and is tolerating the ADA diet with no complaints. She is down to 2-3 liters of O2 per NC. Pt is aware that she will be leaving today, unsure of time at this time.
[2021-07-24 12:15] VITALS: BP 125/64; PULSE 81; TEMP 98.1
--- NOTE | 2021-07-24 13:00 | NUR ---
Picc line has been removed from right upper arm by GISELA Morgan. Pt is dressed and ready to be transferred. Paperwork all faxed to receiving facility
[2021-07-24 13:10] VITALS: BP 125/64; PULSE 81; TEMP 98.1
--- NOTE | 2021-07-24 13:30 | NUR ---
Pt recently left via transportation
--- NOTE | 2021-07-24 14:10 | NUR ---
Report called to Zaki[facility]
--- NOTE | 2021-07-24 14:46 | NUR ---
Mechatronics Technologist collaborated with Choco at [facility] to set up transport time as patient is ready for discharge today. Transport time set for 1300. DAXA met with patient who is agreeable to discharge plan and becomes tearful stating "these are tears of sumaya". Patient is ready to start rehab. DAXA contacted patient's daughter, Alyse and provided transport time. DAXA faxed discharge orders to Choco at [facility].
== END 2021-07-24 13:20 | DRG 177 ==
LOC: MEDICAL 18:15 → SURG 07-23 19:47
PROVIDERS: Internal Medicine; Internal Medicine Infectious Disease; Physician Assistant; Student in an Organized Health Care Education/Training Program; ADMIT Internal Medicine
PROC: 02HV33Z Insertion of Infusion Device into Superior Vena Cava, Percutaneous Approach (ICD-10-PCS; principal; 2021-07-09)
PROC: XW033E5 Introduction of Remdesivir Anti-infective into Peripheral Vein, Percutaneous Approach, New Technology Group 5 (ICD-10-PCS; 2021-07-09)
PROC: 5A09457 Assistance with Respiratory Ventilation, 24-96 Consecutive Hours, Continuous Positive Airway Pressure (ICD-10-PCS; 2021-07-13)
PROC: 5A0945A Assistance with Respiratory Ventilation, 24-96 Consecutive Hours, High Flow/Velocity Cannula (ICD-10-PCS; 2021-07-21)
DX: U07.1 COVID-19 (principal); J12.82 Pneumonia due to coronavirus disease 2019; J96.01 Acute respiratory failure with hypoxia; N39.0 Urinary tract infection, site not specified; J45.909 Unspecified asthma, uncomplicated; E87.6 Hypokalemia; F41.9 Anxiety disorder, unspecified; E11.65 Type 2 diabetes mellitus with hyperglycemia; T38.0X5A Adverse effect of glucocorticoids and synthetic analogues, initial encounter; Z79.82 Long term (current) use of aspirin; Z79.4 Long term (current) use of insulin
CPT/HCPCS: 99223-AI; 99231-AI; 99232-AI; 99233-AI; 99239; A9284; C1751; J0248; J0696; J1100; J1650; J1815; J2060; J2997; J7050

== ENCOUNTER → 2021-09-09 | Outpatient (CLI) | payer MEDICARE, MEDICAID ==
[~2021-09-09] MED LIST: ASPIRIN 32325 MG/TAB PO; COMPLETE MULTI1 TAB PO; MELATIN 3 MG-11 TAB PO; MIRALAX PA17 GM/Dose PO; NOVOLOG 100U100 U/M1 SQ; OMEGA-31 SGL PO; VENTOLIN0.09 MG IH; VITAMIN C500 MG PO
== END ==
LOC: COL.RAD 10:32
DX: J18.9 Pneumonia, unspecified organism (principal)

== ENCOUNTER → 2021-10-15 | Outpatient (CLI) | payer MEDICARE, MEDICAID | LOC: ZLAB.STJ 10:17 | DX: E11.9 Type 2 diabetes mellitus without complications (principal) ==

== ENCOUNTER → 2021-11-06 | Outpatient (CLI) | payer MEDICARE, MEDICAID ==
[2021-11-06 10:07] LABS: CALCIUM 8.9 mg/dL (8.4-10.2); CREATININE, serum 0.66 mg/dL (0.57-1.11)
== END ==
LOC: ZLAB.STJ 09:44
PROVIDERS: Internal Medicine
DX: Z01.89 Encounter for other specified special examinations (principal)